=== PATIENT | female | born 1985 | race African-American/Black ===

== ENCOUNTER 2024-11-08 16:53 | Emergency (ER) | payer OTHER, SELFPAY | END 2024-11-08 19:26 | disposition left against medical advice (07) | LOC: HO.ED 19:21 | PROVIDERS: Emergency Provider Emergency Medicine | DX: R42 Dizziness and giddiness (principal); R53.1 Weakness; Z53.21 Procedure and treatment not carried out due to patient leaving prior to being seen by health care provider ==